=== PATIENT | male | born 1995 | race Caucasian/White ===

== ENCOUNTER 2016-11-24 06:09 | Emergency (ER) | payer SELFPAY ==
--- NOTE | 2016-11-24 07:01 | ED ---
General Adult HPI - General Chief complaint: Extremity Problem,Nontraumatic Stated complaint: numbness in extremities Time Seen by Provider: 11/24/16 06:40 Source: patient, RN notes reviewed, old records reviewed Mode of arrival: ambulatory Limitations: no limitations - History of Present Illness Initial comments: This is a 21-year-old male here for evaluation. Patient presents here for vaginal severest pain. Patient has no medical history, does do physical labor for a living. Patient's recent medical history consists of wrist pain, wrist pain at night, worse at night worse when he wakes up, patient that she was pain in his hands and arms that does not get any better. Patient has no modifying factors or pain, no pain medication. - Related Data Previous Rx's Medication Instructions Recorded Doxycycline [Vibramycin] 100 mg PO Q12HR #14 capsule 05/27/15 Phenazopyridine [Pyridium] 200 mg PO TID #21 tablet 05/27/15 Allergies Allergy/AdvReac Type Severity Reaction Status Date / Time No Known Allergies Allergy Verified 11/24/16 06:18 Review of Systems ROS Statement: Those systems with pertinent positive or pertinent negative responses have been documented in the HPI. ROS Other: All systems not noted in ROS Statement are negative. Past Medical History Past Medical History: No Reported History History of Any Multi-Drug Resistant Organisms: None Reported Past Surgical History: Tonsillectomy Past Psychological History: No Psychological Hx Reported Smoking Status: Current every day smoker Past Alcohol Use History: None Reported Past Drug Use History: None Reported General Exam Limitations: no limitations General appearance: alert, in no apparent distress Head exam: Present: atraumatic, normocephalic, normal inspection Eye exam: Present: normal appearance, PERRL, EOMI. Absent: scleral icterus, conjunctival injection, periorbital swelling ENT exam: Present: normal exam, mucous membranes moist Neck exam: Present: normal inspection. Absent: tenderness, meningismus, lymphadenopathy Respiratory exam: Present: normal lung sounds bilaterally. Absent: respiratory distress, wheezes, rales, rhonchi, stridor Cardiovascular Exam: Present: regular rate, normal rhythm, normal heart sounds. Absent: systolic murmur, diastolic murmur, rubs, gallop, clicks GI/Abdominal exam: Present: soft, normal bowel sounds. Absent: distended, tenderness, guarding, rebound, rigid Extremities exam: Present: normal inspection, full ROM, normal capillary refill. Absent: tenderness, pedal edema, joint swelling, calf tenderness Back exam: Present: normal inspection Neurological exam: Present: alert, oriented X3, CN II-XII intact Psychiatric exam: Present: normal affect, normal mood Skin exam: Present: warm, dry, intact, normal color. Absent: rash Course Vital Signs 11/24/16 06:12 Temperature 98.3 F Pulse Rate 75 Respiratory 16 Rate Blood Pressure 119/69 O2 Sat by Pulse 100 Oximetry - Reevaluation(s) Reevaluation #1: 11/24/16 07:05 Patient is having improvement in symptoms at this time Medical Decision Making - Medical Decision Making 18 female in the ER for evaluation of wrist pain, patient has bilateral wrist pain and paresthesias, positive carpal tunnel, will follow up with orthopedics, patient is suggested to get wrist splint for at nighttime sleeping, anti- inflammatories Disposition Clinical Impression: Carpal tunnel syndrome, bilateral Disposition: HOME SELF-CARE Condition: Good Instructions: Paresthesia (ED) Referrals: Cody Naranjo MD [STAFF PHYSICIAN] - 1-2 days
[2016-11-24] MEDS ORDERED: DEXAMETHASONE SOD PHOSPHATE 10 MG/ML 1 ML VIAL IM STA (07:06)
[2016-11-24] MEDS ORDERED: IBUPROFEN 800 MG TAB PO STA (07:06)
[2016-11-24 07:45] VITALS: BP 132/72; PULSE 57; RESP 17; TEMP 97.8
== END 2016-11-24 07:44 | disposition home or self-care (01) ==
LOC: EC 06:09
DX: G56.03 Carpal tunnel syndrome, bilateral upper limbs (principal); F17.200 Nicotine dependence, unspecified, uncomplicated
CPT/HCPCS: 99284; 96372; J1100

== ENCOUNTER 2017-01-19 21:18 | Emergency (ER) | payer SELFPAY ==
[2017-01-19 21:21] VITALS: BP 119/75; PULSE 71; RESP 18; TEMP 99.3
[2017-01-19] MEDS ORDERED: DIPH,PERTUS(ACELL)TETVAC-LF 0.5 ML VIAL IM ONE (21:29)
--- NOTE | 2017-01-19 22:02 | XR ---
EXAMINATION TYPE: XR foot limited LT DATE OF EXAM: 01/19/2017 COMPARISON: NONE HISTORY: Puncture wound from a nail TECHNIQUE: 2 views FINDINGS: I see no fracture nor dislocation. Soft tissues appear normal. Joint spaces are normal. The re is no sign of a foreign body. IMPRESSION: Normal exam. No sign of a foreign body.
[2017-01-19] MEDS ORDERED: CIPROFLOXACIN HCL 500 MG TAB PO STA (22:08)
--- NOTE | 2017-01-19 22:09 | ED ---
Lower Extremity Injury HPI - General Chief Complaint: Extremity Injury, Lower Stated Complaint: Stepped on a nail Time Seen by Provider: 01/19/17 21:28 Source: patient, RN notes reviewed, old records reviewed Mode of arrival: ambulatory Limitations: no limitations - Related Data Previous Rx's Medication Instructions Recorded Doxycycline [Vibramycin] 100 mg PO Q12HR #14 capsule 05/27/15 Phenazopyridine [Pyridium] 200 mg PO TID #21 tablet 05/27/15 Acetaminophen with Codeine 1 tab PO HS #20 tab 11/24/16 [Tylenol w/codeine #3] Naproxen [Naprosyn] 500 mg PO Q12HR #60 tab 11/24/16 Ciprofloxacin HCl [Cipro] 500 mg PO Q12HR #14 tablet 01/19/17 Allergies Allergy/AdvReac Type Severity Reaction Status Date / Time No Known Allergies Allergy Verified 11/24/16 06:18 Review of Systems ROS Statement: Those systems with pertinent positive or pertinent negative responses have been documented in the HPI. ROS Other: All systems not noted in ROS Statement are negative. Past Medical History Past Medical History: No Reported History History of Any Multi-Drug Resistant Organisms: None Reported Past Surgical History: Tonsillectomy Past Psychological History: No Psychological Hx Reported Smoking Status: Current every day smoker Past Alcohol Use History: None Reported Past Drug Use History: None Reported General Exam Limitations: no limitations Course Vital Signs 01/19/17 21:19 Temperature 99.3 F Pulse Rate 71 Respiratory 18 Rate Blood Pressure 119/75 O2 Sat by Pulse 100 Oximetry Disposition Clinical Impression: Puncture wound of left foot Disposition: HOME SELF-CARE Condition: Good Instructions: Puncture Wound (ED) Additional Instructions: Patient is to do warm soaks 3 times a day for the foot to make sure is any signs of infection occur. Take antibiotics as directed. Return to the emergency department if any alarming signs or symptoms occur. Prescriptions: Ciprofloxacin HCl [Cipro] 500 mg PO Q12HR #14 tablet Referrals: None,Stated [Primary Care Provider] - 1-2 days Time of Disposition: 22:07
== END 2017-01-19 22:23 | disposition home or self-care (01) ==
LOC: EC 21:18
DX: S91.332A Puncture wound without foreign body, left foot, initial encounter (principal); F17.200 Nicotine dependence, unspecified, uncomplicated; Z23 Encounter for immunization; W45.0XXA Nail entering through skin, initial encounter
CPT/HCPCS: 90471; 90715; 99283

== ENCOUNTER 2018-05-30 18:14 | Emergency (ER) | payer OTHER ==
[2018-05-30 18:22] VITALS: TEMP 98.3
--- NOTE | 2018-05-30 18:53 | ED ---
General Adult HPI - General Chief complaint: Abdominal Pain Stated complaint: FLANK PAIN Source: patient Mode of arrival: ambulatory Limitations: no limitations - History of Present Illness Initial comments: Dictation was produced using [employer] dictation software. please excuse any grammatical, word or spelling errors. Chief Complaint: 22-year-old male with no sick any past medical history presents with epigastric/left-sided flank pain. History of Present Illness: Patient 22-year-old male with a afferent mentioned complaints. He states she's been having these symptoms for 2-3 weeks. He seen his primary care doctor who ordered blood tests and imaging studies. Blood tests were performed. He does have the lab results in his hand. Patient was supposed to get a CT however there were some adjustments made and he has not panel callback for scheduling of CT. Patient states that his pain is worse with consumption of caffeine. He doesn't notice any pain that is worse after eating fatty types of foods. Patient states his pain is worse in the morning. States is intermittent. Denies any changes in his urine. No nausea or vomiting. The ROS documented in this emergency department record has been reviewed and confirmed by me. Those systems with pertinent positive or negative responses have been documented in the HPI. All other systems are other negative and/or noncontributory. - Related Data Home Medications Medication Instructions Recorded Confirmed L.acidoph,Paracasei, B.lactis 1 cap PO DAILY 05/30/18 05/30/18 [Probiotic] traZODone HCL [TraZODone HCl] 50 mg PO HS 05/30/18 05/30/18 Previous Rx's Medication Instructions Recorded Famotidine [Pepcid] 20 mg PO BID #20 tablet 05/30/18 Allergies Allergy/AdvReac Type Severity Reaction Status Date / Time No Known Allergies Allergy Verified 05/30/18 19:05 Review of Systems ROS Statement: Those systems with pertinent positive or pertinent negative responses have been documented in the HPI. ROS Other: All systems not noted in ROS Statement are negative. Past Medical History Past Medical History: No Reported History History of Any Multi-Drug Resistant Organisms: None Reported Past Surgical History: Tonsillectomy Past Psychological History: No Psychological Hx Reported Smoking Status: Current every day smoker Past Alcohol Use History: None Reported Past Drug Use History: None Reported General Exam - General Exam Comments Initial Comments: PHYSICAL EXAM: General Impression: Alert and oriented x3, not in acute distress HEENT: Normocephalic atraumatic, extra-ocular movements intact, pupils equal and reactive to light bilaterally, mucous membranes moist. Cardiovascular: Heart regular rate and rhythm, S1&S2 audible, no murmurs, rubs or gallops Chest: Lungs clear to auscultation bilaterally, no rhonchi, no wheeze, no rales Abdomen: Bowel sounds present, abdomen soft, non-tender, non-distended, no organomegaly Musculoskeletal: Pulses present and equal in all extremities, no peripheral edema Motor: Power 5/5 bilaterally, no focal deficits noted Neurological: CN II-XII grossly intact, no focal motor or sensory deficits noted Skin: Intact with no visualized rashes Psych: Normal affect and mood Limitations: no limitations Course Vital Signs 05/30/18 05/30/18 18:20 19:59 Temperature 98.3 F Pulse Rate 94 73 Respiratory 16 18 Rate Blood Pressure 125/81 113/75 O2 Sat by Pulse 100 100 Oximetry Medical Decision Making - Medical Decision Making ED course: 22-year-old male presents with chief complaint of epigastric/left- sided flank pain. Vital signs upon arrival are within acceptable limits. HPI macro CBC, metabolic panel, abdominal labs, urinalysis unremarkable. CT abdomen and pelvis CT shows no acute processes. Symptoms are likely suggestive of gastritis. More history was obtained from patient he has been drinking more alcohol and smoking more recently. Patient also has increase his caffeine intake in light of recent personal stressors. Discussed with patient that these likely will worsen his symptoms. Patient given GI cocktail. He is given prescription for pepcid. Told to follow up with his primary care physician. Told that if his symptoms acutely worsen he may need upper endoscopy. Patient told to return to emergency department with worsening symptoms. He is counseled on peptic ulcer disease versus gastritis. Patient hasn't established primary care physician. Is understandable agreeable to disposition. - Lab Data Result diagrams: 05/30/18 18:48 05/30/18 18:48 Lab Results 05/30/18 05/30/18 12 Range/Units 18:48 18:48 18:48 WBC 6.7 (3.8-10.6) k/uL RBC 5.56 (4.30-5.90) m/uL Hgb 16.7 (13.0-17.5) gm/dL Hct 52.0 (39.0-53.0) % MCV 93.6 (80.0-100.0) fL MCH 30.0 (25.0-35.0) pg MCHC 32.1 (31.0-37.0) g/dL RDW 12.5 (11.5-15.5) % Plt Count 254 (150-450) k/uL Neutrophils % 64 % Lymphocytes % 27 % Monocytes % 7 % Eosinophils % 1 % Basophils % 0 % Neutrophils # 4.2 (1.3-7.7) k/uL Lymphocytes # 1.8 (1.0-4.8) k/uL Monocytes # 0.4 (0-1.0) k/uL Eosinophils # 0.1 (0-0.7) k/uL Basophils # 0.0 (0-0.2) k/uL Sodium 142 (137-145) mmol/L Potassium 4.4 (3.5-5.1) mmol/L Chloride 104 (98-107) mmol/L Carbon Dioxide 29 (22-30) mmol/L Anion Gap 9 mmol/L BUN 9 (9-20) mg/dL Creatinine 0.80 (0.66-1.25) mg/dL Est GFR (CKD-EPI)AfAm >90 (>60 ml/min/1.73 sqM) Est GFR (CKD-EPI)NonAf >90 (>60 ml/min/1.73 sqM) Glucose 93 (74-99) mg/dL Calcium 9.9 (8.4-10.2) mg/dL Total Bilirubin 1.5 H (0.2-1.3) mg/dL Conjugated Bilirubin 0.0 (0.0-0.3) mg/dL Unconjugated Bilirubin 1.4 H (0.0-1.1) mg/dL Delta Bilirubin 0.1 (0.0-0.2) mg/dL AST 25 (17-59) U/L ALT 27 (21-72) U/L Alkaline Phosphatase 46 (38-126) U/L Total Protein 7.3 (6.3-8.2) g/dL Albumin 4.7 (3.5-5.0) g/dL Lipase 124 (23-300) U/L Urine Color Light Yellow Urine Appearance Clear (Clear) Urine pH 7.0 (5.0-8.0) Ur Specific [place]estal 1.009 (1.001-1.035) Urine Protein Negative (Negative) Urine Glucose (UA) Negative (Negative) Urine Ketones Negative (Negative) Urine Blood Negative (Negative) Urine Nitrite Negative (Negative) Urine Bilirubin Negative (Negative) Urine Urobilinogen <2.0 (<2.0) mg/dL Ur Leukocyte Esterase Negative (Negative) Disposition Clinical Impression: Abdominal pain Disposition: HOME SELF-CARE Instructions: Abdominal Pain (ED) Prescriptions: Famotidine [Pepcid] 20 mg PO BID #20 tablet Is patient prescribed a controlled substance at d/c from ED?: No Referrals: Simran Robertson MD [Primary Care Provider] - 1-2 days Time of Disposition: 21:15
[2018-05-30 19:06] LABS: Appearance,Urine Clear (Clear); Bilirubin,Urine Negative (Negative); Blood,Urine Negative (Negative); Color,Urine Light Yellow; Glucose,Urine (UA) Negative (Negative); Ketones,Urine Negative (Negative); Leukocyte Esterase,Urine Negative (Negative); Nitrite,Urine Negative (Negative); Protein,Urine Negative (Negative); Specific Gravity,Urine 1.009 (1.001-1.035); Urobilinogen,Urine <2.0 mg/dL (<2.0)
[2018-05-30 19:08] LABS: Basophils % (A) 0 %; Eosinophils # (A) 0.1 k/uL (0-0.7); Eosinophils % (A) 1 %; HGB 16.7 gm/dL (13.0-17.5); Lymphocytes # (A) 1.8 k/uL (1.0-4.8); Lymphocytes % (A) 27 %; MCHC 32.1 g/dL (31.0-37.0); MCV 93.6 fL (80.0-100.0); Mean Platelet Volume 7.6; Monocytes # (A) 0.4 k/uL (0-1.0); Monocytes % (A) 7 %; Neutrophils # (A) 4.2 k/uL (1.3-7.7); Neutrophils % (A) 64 %; Platelet Count 254 k/uL (150-450); RBC 5.56 m/uL (4.30-5.90); RDW 12.5 % (11.5-15.5); WBC 6.7 k/uL (3.8-10.6)
[2018-05-30 19:16] LABS: ALT 27 U/L (21-72); AST 25 U/L (17-59); Albumin 4.7 g/dL (3.5-5.0); Alkaline Phosphatase 46 U/L (38-126); Anion Gap 9 mmol/L; Bilirubin, Delta 0.1 mg/dL (0.0-0.2); Bilirubin,Unconjugated 1.4 mg/dL (0.0-1.1); Blood Urea Nitrogen 9 mg/dL (9-20); Calcium 9.9 mg/dL (8.4-10.2); Carbon Dioxide 29 mmol/L (22-30); Chloride 104 mmol/L (98-107); Glucose 93 mg/dL (74-99); Lipase 124 U/L (23-300); Potassium 4.4 mmol/L (3.5-5.1); Sodium 142 mmol/L (137-145); Total Bilirubin 1.5 mg/dL (0.2-1.3); Total Protein 7.3 g/dL (6.3-8.2)
[2018-05-30 20:00] VITALS: RESP 18
--- NOTE | 2018-05-30 20:42 | CT ---
EXAMINATION TYPE: CT abdomen pelvis w con DATE OF EXAM: 05/30/2018 COMPARISON: 05/27/2015 HISTORY: LT flank pain and diarrhea CT DLP: 685.8 mGycm Automated exposure control for dose reduction was used. TECHNIQUE: Helical acquisition of images was performed from the lung bases through the pelvis. CONTRAST: Performed without Oral Contrast and with IV Contrast, patient injected with 100 mL of Isovu e 300. FINDINGS: LUNG BASES: No significant abnormality is appreciated. LIVER/GB: No significant abnormality is appreciated. PANCREAS: No significant abnormality is seen. SPLEEN: No significant abnormality is seen. ADRENALS: No significant abnormality is seen. KIDNEYS and ureters: No significant abnormality is seen. PERITONEAL CAVITY: No pneumoperitoneum or fluid. RETROPERITONEAL ADENOPATHY: None visualized REPRODUCTIVE ORGANS: No significant abnormality is seen URINARY BLADDER: No significant abnormality is seen. PELVIC ADENOPATHY: None visualized. OSSEOUS STRUCTURES: No significant abnormality is seen. BOWEL: No significant abnormality is seen. OTHER: Negative. IMPRESSION: NO ACUTE PROCESS.
[2018-05-30] MEDS ORDERED: MAG HYDROX/AL HYDROX/SIMETH 30 ML, HYOSCYAMINE ELIXIR 10 ML, CIMETIDINE HCL 300 MG, LID... PO STA ×4 (20:52)
[2018-05-30 21:34] VITALS: BP 120/74; PULSE 82
== END 2018-05-30 21:45 | disposition home or self-care (01) ==
LOC: EC 18:14
DX: R10.13 Epigastric pain (principal); F17.200 Nicotine dependence, unspecified, uncomplicated; Z79.899 Other long term (current) drug therapy; Z53.8 Procedure and treatment not carried out for other reasons
CPT/HCPCS: 36415; 80053; 82248; 83690; 85025; 81003; 74177; 99284; Q9967

== ENCOUNTER → 2020-09-03 | Outpatient (CLI) | payer OTHER ==
--- NOTE | 2020-09-03 11:10 | US ---
EXAMINATION TYPE: US abdomen complete DATE OF EXAM: 09/03/2020 COMPARISON: None CLINICAL HISTORY: 25-year-old male K42.9 Umbilical hernia without obstruction or gangrene. TECHNIQUE: Multiple sonographic images of the abdomen are obtained. FINDINGS: EXAM MEASUREMENTS: Liver Length: 10.9 cm Gallbladder Wall: 0.2 cm CBD: 0.3 cm Spleen: 9.4 cm Right Kidney: 10.4 x 3.9 x 4.1 cm Left Kidney: 10.2 x 5.1 x 5.7 cm Pancreas: Only small portions of the pancreatic head and neck are seen. Remainder suboptimally visua lized due to shadowing from bowel gas. Liver: wnl Gallbladder: No stones seen Evidence for sonographic Dsouza's sign: No CBD: wnl Spleen: wnl Kidneys: No hydronephrosis. Upper IVC: wnl Abd Aorta: wnl Physiotherapist'S Assistant notes: Scanning was performed around umbilicus without and with Valsalva; no evidence for hernia by ultrasound criteria. IMPRESSION: 1. Targeted scanning at and around the umbilicus without and with Valsalva. No discrete abdominal wal l hernia is identified. 2. Limited visualization of portions of the pancreas. Otherwise, unremarkable sonographic examination of the abdomen.
== END | disposition home or self-care (01) ==
LOC: RADUSWWP 08:55
PROVIDERS: ATTEND Family Medicine
DX: K42.9 Umbilical hernia without obstruction or gangrene (principal)
CPT/HCPCS: 76700